=== PATIENT | female | born 1980 | race Caucasian/White ===

== ENCOUNTER → 2023-08-08 15:53 | Outpatient (REF) | payer OTHER, SELFPAY | LOC: HWRAD 15:53 | PROVIDERS: ATTENDING PHYSICIAN Nurse Practitioner Family | DX: J06.9 Acute upper respiratory infection, unspecified (principal) | CPT/HCPCS: 71046 ==

== ENCOUNTER → 2023-11-25 06:36 | Day surgery (SDC) | payer OTHER, SELFPAY | LOC: GI 06:36 | PROVIDERS: ATTENDING PHYSICIAN Specialist | DX: Z12.11 Encounter for screening for malignant neoplasm of colon (principal); Z86.010 Personal history of colon polyps | CPT/HCPCS: G0105 ==

== ENCOUNTER → 2024-06-04 12:52 | Outpatient (REF) | payer BC, SELFPAY | LOC: HWRAD 12:52 | PROVIDERS: ATTENDING PHYSICIAN Obstetrics & Gynecology; FAMILY PHYSICIAN Family Medicine | DX: N94.6 Dysmenorrhea, unspecified (principal); R10.2 Pelvic and perineal pain | CPT/HCPCS: 76830; 76856 ==

== ENCOUNTER → 2024-07-11 18:20 | Outpatient (REF) | payer BC, SELFPAY | LOC: RAD 18:20 | PROVIDERS: ATTENDING PHYSICIAN Family Medicine | DX: R10.9 Unspecified abdominal pain (principal); M54.6 Pain in thoracic spine | CPT/HCPCS: 71046; 74018 ==

== ENCOUNTER → 2024-07-27 09:58 | Outpatient (REF) | payer BC, SELFPAY | LOC: HWRAD 09:58 | PROVIDERS: ATTENDING PHYSICIAN Family Medicine | DX: M54.6 Pain in thoracic spine (principal); R10.9 Unspecified abdominal pain; M62.830 Muscle spasm of back | CPT/HCPCS: 76770 ==

== ENCOUNTER → 2024-08-06 16:00 | Outpatient (REF) | payer BC, SELFPAY | LOC: RAD 16:00 | PROVIDERS: ATTENDING PHYSICIAN Family Medicine | DX: R10.11 Right upper quadrant pain (principal); R10.9 Unspecified abdominal pain | CPT/HCPCS: 74177; Q9967 ==

== ENCOUNTER → 2024-12-17 06:58 | Outpatient (REF) | payer BC, SELFPAY | LOC: HWRAD 06:58 | PROVIDERS: ATTENDING PHYSICIAN Specialist; FAMILY PHYSICIAN Family Medicine | DX: R10.9 Unspecified abdominal pain (principal) | CPT/HCPCS: 76700 ==

== ENCOUNTER 2025-01-04 06:18 | Day surgery (SDC) | payer BC, SELFPAY | END 2025-01-04 11:42 | disposition home or self-care (01) | LOC: GI 06:18 | PROVIDERS: ATTENDING PHYSICIAN Specialist | DX: Z12.11 Encounter for screening for malignant neoplasm of colon (principal); K59.00 Constipation, unspecified; Z86.0101 Personal history of adenomatous and serrated colon polyps; Z80.0 Family history of malignant neoplasm of digestive organs | CPT/HCPCS: G0105 ==